=== PATIENT | male | born 1955 | race Caucasian/White ===

== ENCOUNTER 2016-06-11 06:03 | Emergency (ER) | payer BC ==
[2016-06-11] MEDS ORDERED: NITROGLYCERINE 2 % OINTMENT PACK TOP ONE (06:14)
--- NOTE | 2016-06-11 06:16 | EDPRACDOC ---
[id number] Source: Sanitation Manager Mode of Arrival: Ambulance Home Medications: Home Medications Alprazolam [Xanax] 1 mg PO Q6H 06/11/16 Amlodipine [Norvasc] 5 mg PO DAILY 06/11/16 Aspirin 81 mg PO DAILY 06/11/16 Carisoprodol [Soma] 350 mg PO BID 06/11/16 Diclofenac Sodium/Misoprostol [Arthrotec 50 mg-200 Mcg Tab] 1 tab PO BID Duloxetine [Cymbalta] 30 mg PO BID 06/11/16 Furosemide [Lasix] 40 mg PO DAILY 06/11/16 Hyoscyamine [Levsin-Sl, Hyomax] 0.125 mg PO Q6 PRN 06/11/16 Irbesartan [Avapro] 150 mg PO DAILY 06/11/16 Nitroglycerin [Nitrostat] 0.4 mg SL . Q5MIN PRN 06/11/16 Oxycodone HCl [Oxycontin] 30 mg PO BID 06/11/16 Oxycodone HCl/Acetaminophen [Percocet 10-325 mg Tablet] 1 tab PO QID 06/11/16 Pantoprazole Sodium [Protonix] 40 mg PO DAILY 06/11/16 Sertraline HCl [Zoloft] 100 mg PO DAILY 06/11/16 Zolpidem Tartrate [Ambien] 10 mg PO HS PRN 06/11/16 Allergies/Adverse Reactions: Allergies Allergy/AdvReac Type Severity Reaction Status Date / Time No Known Allergies Allergy Verified 06/11/16 06:32 - History of Present Illness Onset: 0400 HPI: PT WOKE UP THIS AM AROUND 0400 THEN DEVELOPED CP. HE TOOK 3 NITRO AT HOME AND IT IS GOING AWAY, BUT IT IS STILL THERE. PT ALSO TOOK AN ASA. PT HAS NOT HAD A CATH OR STRESS SINCE 2013 WHEN HE HAD HIS LAST STENT PLACED. Chest Pain Location: Reports: Substernal Pain Radiation: Reports: None Symptoms Occur: Reports: Suddenly Cardiac Risk Factors: Reports: Family History, Hypertension Cardiac History of: Reports: Similar Pain in Past, CT, Valve Disease, Cardiac Cath, CABG, Stent PE Risk Factors: Reports: None Medications within 24 Hours: Reports: Aspirin, Nitro Prehospital Care: Reports: Monitor, SL NTG, ASA Pain Came On: Reports: Suddenly Pain Status: Present Now Pain Description: Reports: Pressure Pain Severity: Moderate Pain Improves With: Reports: Nitroglycerin Associated Signs and Symptoms: Reports: None ED Past Medical History - Patient Medical History Cardiac History: Reports: Hypertension, Cardiac Catheterization, CABG, Valvular Heart Disease Surgical History: Reports: CABG, Cardiac Catheterization, Other (AORTIC VALVE REPLACEMENT) - Family Medical History Reports: Cardiac Disorders - Social Medical History Smoking Status: Former smoker ETOH: None Substance Abuse: None Lives With: Spouse Lives In: Home EDM Review of Systems - Review of Systems ROS Negative Except as Marked: Yes All systems reviewed and were negative except as marked Cardiovascular: Chest Pain - Physical Exam Constitutional: Alert (Awake), No apparent distress Oriented to: Time, Person, Place Last recorded Vital Signs: Oxygen Pulse Oxygen Saturation O2 Device Oxygen Flow Rate Fraction of Inspired Oxygen ( FIO2) - HEENT Head: Normal ( normocephalic) Eye Exam: Normal (PERRL, EOMI, Sclera white) Oropharynx: Normal (Pharynx:Moist without exudate,Gums-no swelling) ENT EAC: Normal TMJ: Normal Nose: No Symptoms Reported (septum midline) Neck: Normal (FROM, trachea at midline) - Respiratory/Cardiovascular Respiratory: Normal - CTA (BBS clear to auscultation without adventitious sounds ) Cardiovascular: Normal (RRR without murmur, gallop or rub) - GI Auscultation: Normal (NABS) Palpation: Normal (Soft,No rebound or guarding, non distended) Tenderness: Non tender Elias's Sign: Negative - Musculoskeletal Back: Normal (Non-Tender) Extremities: Normal (Normal tone, Pulses 2+ No cyanosis or edema, FROM) - Integumentary Skin: Normal, Warm, Dry Lymphatics: Normal (no adenopathy) - Neurologic Memory Impaired: Normal Motor Function: Normal (Normal tone, Pulses 2+ No cyanosis or edema, FROM) Cranial Nerve: Normal (CN II-X11 intact sensation, strength 5/5) Cerebellar: Normal Mood Description: Normal Thought: Coherent Perception: Normal - Action ASA given in the ED: No Aspirin therapy held due to: Other-specify below* (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 - Additional Information I SPOKE WITH PT AND REC ADMISSION. PT REFUSES. HE AND HIS ARE AWARE THAT WE CAN'T RULE OUT A HEART ATTACK. HE KNOWS TO RETURN IF WORSE. HE WILL CALL HIS TECHNICAL AIDE ON MONDAY. Decision Time to Discharge: 07:02 - Departure Yes I personally saw and evaluated the patient. Disposition: Home Condition: Fair Final Diagnosis: Acute coronary syndrome Instructions: Acute Coronary Syndrome (GEN) Education/Counseling Given To: Patient, Family Member Education/Counseling Given Regarding: Diagnosis, Treatment, Follow Up Referrals: None,No Provider [Primary Care Provider] - One Week Uriel Roque III, MD [NonStaff] - One Week Prescriptions: No Action Sertraline HCl [Zoloft] 100 mg PO DAILY Hyoscyamine [Levsin-Sl, Hyomax] 0.125 mg PO Q6 PRN PRN Reason: Nausea Furosemide [Lasix] 40 mg PO DAILY Amlodipine [Norvasc] 5 mg PO DAILY Oxycodone HCl/Acetaminophen [Percocet 10-325 mg Tablet] 1 tab PO QID Irbesartan [Avapro] 150 mg PO DAILY Pantoprazole Sodium [Protonix] 40 mg PO DAILY Nitroglycerin [Nitrostat] 0.4 mg SL . Q5MIN PRN PRN Reason: Chest Pain Or Discomfort Aspirin 81 mg PO DAILY Zolpidem Tartrate [Ambien] 10 mg PO HS PRN PRN Reason: sleep Oxycodone HCl [Oxycontin] 30 mg PO BID Duloxetine [Cymbalta] 30 mg PO BID Carisoprodol [Soma] 350 mg PO BID Diclofenac Sodium/Misoprostol [Arthrotec 50 mg-200 Mcg Tab] 1 tab PO BID Alprazolam [Xanax] 1 mg PO Q6H Additional Instructions: RETURN FOR ANY CONCERNS.
[2016-06-11 06:23] VITALS: TEMP 97.9
[2016-06-11 06:26] LABS: AUTOMATED BASOPHIL 0.4 % (0-2); AUTOMATED EOSINOPHIL 1.7 % (0-5); AUTOMATED LYMPH 11.8 % (17-44); AUTOMATED MONOCYTE 4.5 % (3-10); AUTOMATED NEUTROPHIL 81.6 % (45-76); MPV 7.1 fL (7.4-10.4)
[2016-06-11 06:30] VITALS: BMI 28.0
[2016-06-11 06:38] LABS: PARTIAL THROMB. TIME 26.4 SEC (22-35); PT-INR 1.1
[2016-06-11 06:47] LABS: BLOOD UREA NITROGEN 20 MG/DL (9-20); CALC CORRECTED 8.9 MG/DL (8.4-10.2); CALCIUM 8.5 MG/DL (8.4-10.2); CALCULATED OSMOLALITY 275 MOs/Kg (270-290); CHLORIDE 106 mEq/L (98-107); GLUCOSE 117 MG/DL (70-99); SODIUM LEVEL 141 mEq/L (137-146); TOTAL PROTEIN 5.7 G/DL (6.3-8.2)
--- NOTE | 2016-06-11 06:58 | DIRPT ---
CLINICAL DATA: Chest pain EXAM: PORTABLE CHEST 1 VIEW COMPARISON: 11/26/2014 FINDINGS: Cardiac shadow is stable. Postsurgical changes are again seen. The linear atelectasis seen in the lingula has resolved in the interval. No focal infiltrate is seen. No bony abnormality is noted. IMPRESSION: No active disease. Electronically Signed By: Jonah Barragan M.D. On: 06/11/2016 06:56
[2016-06-11 07:03] VITALS: BP 126/77; PULSE 62
== END 2016-06-11 07:17 | disposition home or self-care (01) ==
LOC: ED 06:03
DX: I24.9 Acute ischemic heart disease, unspecified (principal)
CPT/HCPCS: 36415; 71010; 80053; 84484; 85025; 85610; 85730; 93005; 99284; J3490